=== PATIENT | female | born 1990 | race Caucasian/White ===

== ENCOUNTER 2016-04-10 10:37 | Emergency (ER) | payer OTHER, BC ==
[2016-04-10 11:14] VITALS: BP 111/58
--- OUTSIDE RECORDS SUMMARY | 2016-04-10 11:32 | XMS REPORT | CCD ---
:1990 Author Name TRAE CROSS Gertrude Address [address] [facility] Unavailable [place], [place] [id number] Care Team Providers Name Role Phone RONA WEISS Attending Physician Unavailable Vital Signs Unknown. Allergies Unknown. Procedures Unknown. History of Immunizations Unknown. Problems Unknown. Results Unknown. Medications Unknown. Medications Administered Unknown. Encounters Encounter Diagnosis Diagnosis Code Start Date EXAMINATION OR TEST POS V7242 02/27/2013 Social History Smoking Status Code Start Date End Date Never smoker [id number] Patient Decision Aids Unknown. Instructions You were admitted to [facility] on 02/27/2013 with a principle diagnosis of EXAMINATION OR TEST POS. Should you have any questions prior to discharge, please contact a member of your healthcare team. If you have left the hospital and have any questions, please contact your primary care physician. Chief Complaint and Reason For Visit Unknown. Function Status Unknown. Plan of Care Unknown. Referral/Transition of Care Unknown.
--- OUTSIDE RECORDS SUMMARY | 2016-04-10 11:32 | XMS REPORT | CCD ---
:1990 Author Name BRIANNA SOW Address [address] [facility] Unavailable [place], [place] [id number] Care Team Providers Name Role Phone RONA WEISS Attending Physician Unavailable Vital Signs Unknown. Allergies Unknown. Procedures Unknown. History of Immunizations Unknown. Problems Unknown. Results CBC Test Name Code Test Result Test Units Test Date/Time WBC 6690-2 10.1000 K/uL 03/29/2013 10:55 RBC 789-8 4.2100 M/uL 03/29/2013 10:55 HEMOGLOBIN 718-7 12.9000 g/dL 03/29/2013 10:55 HEMATOCRIT 36.6000 % 03/29/2013 10:55 MCV 86.9000 fL 03/29/2013 10:55 MCH 30.6000 PG 03/29/2013 10:55 MCHC 35.2000 G/DL 03/29/2013 10:55 RDW-SD 40.5000 FL 03/29/2013 10:55 RDW-CV 13.5000 % 03/29/2013 10:55 PLATELETS 218.0000 K/UL 03/29/2013 10:55 MPV 10.4000 FL 03/29/2013 10:55 %GRAN 71.6000 % 03/29/2013 10:55 %LYMPH 19.2000 % 03/29/2013 10:55 %MONO 7.3000 % 03/29/2013 10:55 %EOS 1.7000 % 03/29/2013 10:55 %BASO 0.2000 % 03/29/2013 10:55 #GRAN 7.2300 K/UL 03/29/2013 10:55 #LYMPH 1.9400 K/UL 03/29/2013 10:55 #MONO 0.7400 K/UL 03/29/2013 10:55 #EOS 0.1700 K/UL 03/29/2013 10:55 #BASO 0.0200 K/UL 03/29/2013 10:55 SLIDE REVIEWED? NOT INDICATED N/A 03/29/2013 10:55 MANUAL DIFF NOT INDICATED N/A 03/29/2013 10:55 GLUCOSE TAMI 1 HR SCREEN Test Name Code Test Result Test Units Test Date/Time GLUCOSE TAMI RANDOM 131.0000 MG/DL 03/29/2013 10:55 Medications Unknown. Medications Administered Unknown. Encounters Encounter Diagnosis Diagnosis Code Start Date SCREENING NOS V289 03/29/2013 Social History Smoking Status Code Start Date End Date Never smoker [id number] Patient Decision Aids Unknown. Instructions You were admitted to [facility] on 03/29/2013 with a principle diagnosis of SCREENING NOS. You had the following tests done:[id number]%GRAN%LYMPH% MONO%EOS%BASO#GRAN#LYMPH# MONO#EOS#BASOSLIDE REVIEWED?MANUAL DIFFGLUCOSE TAMI RANDOM You were discharged from [facility] on 03/29/2013. Should you have any questions prior to discharge, please contact a member of your healthcare team. If you have left the hospital and have any questions, please contact your primary care physician. Chief Complaint and Reason For Visit Unknown. Function Status Unknown. Plan of Care Unknown. Referral/Transition of Care Unknown.
--- OUTSIDE RECORDS SUMMARY | 2016-04-10 11:32 | XMS REPORT | CCD ---
:1990 Author Name BRIANNA SOW Address [address] Unavailable [place], [place] [id number] Care Team Providers Name Role Phone RONA WEISS Attending Physician Unavailable Vital Signs Unknown. Allergies Unknown. Procedures Unknown. History of Immunizations Unknown. Problems Unknown. Results Unknown. Medications Unknown. Medications Administered Unknown. Encounters Encounter Diagnosis Diagnosis Code Start Date SCREENING NOS V289 05/31/2013 Social History Smoking Status Code Start Date End Date Never smoker [id number] Patient Decision Aids Unknown. Instructions You were admitted to [facility] on 05/31/2013 with a principle diagnosis of SCREENING NOS. You were discharged from [facility] on 05/31/2013. Should you have any questions prior to discharge, please contact a member of your healthcare team. If you have left the hospital and have any questions, please contact your primary care physician. Chief Complaint and Reason For Visit Unknown. Function Status Unknown. Plan of Care Diagnostic Test Pending Plan of Care Pending Diagnostic Test CULTURE GROUP B, [LOINC: 582-7], 05/31/2013 Referral/Transition of Care Unknown.
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
--- OUTSIDE RECORDS SUMMARY | 2016-04-10 11:32 | XMS REPORT | CCD ---
:1990 Author Name BRIANNA SOW Address [address] Unavailable [place], [place] [id number] Care Team Providers Name Role Phone ANDREW DAMICO Attending Physician Unavailable Vital Signs Unknown or Not Available. Allergies Unknown or Not Available. Procedures Unknown or Not Available. History of Immunizations Unknown or Not Available. Problems Unknown or Not Available. Results Unknown or Not Available. Medications Unknown or Not Available. Medications Administered Unknown or Not Available. Encounters Encounter Diagnosis Diagnosis Code Start Date LUMBOSACRAL SPONDYLOSIS 7213 09/06/2013 Social History Smoking Status Code Start Date End Date Never smoker [id number] Patient Decision Aids Unknown or Not Available. Discharge Instructions You were admitted to [facility] on 09/06/2013 with a principal diagnosis of LUMBOSACRAL SPONDYLOSIS. You had the following procedures done:LUMBOSAC SPINE X-RAY NEC You were discharged from [facility] on 09/06/2013. Should you have any questions prior to discharge, please contact a member of your healthcare team. If you have left the hospital and have any questions, please contact your primary care physician. Chief Complaint and Reason For Visit Unknown or Not Available. Function Status Unknown or Not Available. Plan of Care Unknown or Not Available. Referral/Transition of Care Unknown or Not Available.
--- NOTE | 2016-04-10 11:41 | ERNOTE ---
Date of Service: 04/10/16 Time Seen by Provider: 04/10/16 11:24 Stated Complaint: NOT FEELING VERY WELL Presenting Symptoms:: cough, runny nose Source: patient, RN notes reviewed Exam Limitations: no limitations Immunizations: IMMUNIZATION HX Immunizations Up to Date Yes History of Influenza Vaccine Yes Hx Pneumococcal Vaccination No Allergies/Adverse Reactions: Allergies codeine Allergy (Verified 04/10/16 11:15) diphenhydramine Allergy (Verified 04/10/16 11:15) Sulfa (Sulfonamide Antibiotics) Allergy (Verified 04/10/16 11:15) Home Medications: HOME MEDICATIONS Loratadine [Claritin] 10 mg PO DAILY 04/10/16 [Last Taken Unknown] Pseudoephedrine HCl [Sudafed] 30 mg PO DAILY 04/10/16 [Last Taken Unknown] - History of Present Ilness Narrative: Michelle is a 25 year old female who presents to the ED for upper respiratory symptoms that began yesterday. She also had several episodes of vomiting last evening, but is tolerating oral intake today without incident. Her son is being seen with similar symptoms as well. She has taken ibuprofen this morning. She is routinely on Claritin and Sudaphed for the past several months. Date (Duration): 04/09/16 Frequency/Possible Cause: Reports: illness exposure Associated Symptoms: Reports: cough, nasal congestion, nasal drainage, earache, headache. Denies: chest pain/soreness, shortness of breath, wheezing, facial pain, dizziness, lightheadedness, sore throat, muscle aches, fever/chills Prior Treatment: Denies: recently seen Review of Systems - Review of Systems Constitutional: Present: See HPI EYE: Present: no symptoms reported ENT: Present: See HPI Respiratory: Present: See HPI Cardiology: Present: See HPI Gastrointestinal/Abdominal: Absent: diarrhea, abdominal pain Genitourinary: Present: no symptoms reported Musculoskeletal: Absent: muscle pain, joint pain Skin: Absent: rash, lesions Neurological: Present: headache. Absent: dizziness/light-headedness Endocrine: Present: no symptoms reported Hematologic/Lymphatic: Present: no symptoms reported Psych: Present: no symptoms reported - Patient's Past Medical History Patient History - Medical: No pertinent hx Patient History - Cardiac/Respiratory: No pertinent hx Patient History - Cancer: No Hx of Cancer Patient History - Surgical Procedures: , Other Patient History - Other: None LMP (females 10-50): last week - Social History Living Situations: home Abuse History: No History of abuse Psych History: No pertinent hx Smoking Status: Former smoker Alcohol Use: occasionally Drug Use: none - Immunizations Immunizations Up to Date: Yes Hx Pneumococcal Vaccination: No History of Influenza Vaccine: Yes Physical Exam - Physical Exam General Appearance: Present: wd/wn, alert, no apparent distress Eye Exam: Normal inspection: bilateral, PERRL: bilateral Ears, Nose, Throat: Present: hearing grossly normal, nasal congestion, sinus pain/drainage - mild maxillary sinus tenderness with palpation, pharyngeal erythema - mild. Absent: abnormal TM (R), abnormal TM (L), pharyngeal swelling Neck: Present: normal inspection, nontender, supple Respiratory: Present: no respiratory distress, normal breath sounds, no accessory muscle use, lungs clear Cardiovascular/Chest: Present: regular rate, rhythm, no murmur Neurological Exam: Present: alert, oriented, normal mood/affect, no motor/ sensory deficits Skin Exam: Present: normal color, warm/dry Lymphatic Exam: Present: no adenopathy ED Progress - Vital Signs Patient's Vital Signs:: I have reviewed the patient's vital signs. Vital Signs: Vital Signs 04/10/16 11:00 Temperature 36.2 C L Pulse Rate 82 Respiratory 16 Rate Blood Pressure 111/58 O2 Sat by Pulse 99 Oximetry - Progress/Reassessment Chief Complaint: Upper Respiratory Symptoms Progress:: Unchanged Departure - Departure Clinical Impression: Upper respiratory infection, viral Disposition: Home self-care Condition: Good Instructions: Upper Respiratory Infection, Adult, [id number] Additional Instructions: Stop sudaphed and claritin for now Start Flonase Nasal saline spray as needed for congestion Follow up if symptoms worsen or persist longer than 7 to 10 days
== END 2016-04-10 11:51 | disposition home or self-care (01) ==
LOC: ER 10:37
DX: Z87.891 Personal history of nicotine dependence (principal); J06.9 Acute upper respiratory infection, unspecified; B97.89 Other viral agents as the cause of diseases classified elsewhere

== ENCOUNTER 2016-07-22 11:44 | Emergency (ER) | payer BC, OTHER ==
--- NOTE | 2016-07-22 11:59 | ERNOTE ---
Date of Service: 07/22/16 Time Seen by Provider: 07/22/16 11:56 Stated Complaint: 2 DAYS POST OP, FEVER, COUGHING, SOB Presenting Symptoms:: cough, fever Source: patient, RN notes reviewed Exam Limitations: no limitations Immunizations: IMMUNIZATION HX Immunizations Up to Date Yes History of Influenza Vaccine No Hx Pneumococcal Vaccination No Allergies/Adverse Reactions: Allergies codeine Allergy (Verified 07/22/16 11:55) diphenhydramine Allergy (Verified 07/22/16 11:55) Sulfa (Sulfonamide Antibiotics) Allergy (Verified 07/22/16 11:55) Home Medications: HOME MEDICATIONS Docusate Sodium 100 mg PO BID 07/22/16 [Last Taken Unknown] Omeprazole 20 mg PO DAILY 07/22/16 [Last Taken Unknown] Ondansetron HCl [Zofran] 4 mg PO Q6H 07/22/16 [Last Taken Unknown] oxyCODONE HCL [Oxycodone] 5 mg PO Q6H PRN 07/22/16 [Last Taken Unknown] - History of Present Ilness Narrative: 25 y/o female ambulatory to the ED for a fever that was noticed early this morning. She underwent a laparascopic cholecystectomy and hernia repair at [facility] in [place] 2 days ago. She reports having a cough prior to her surgery. She had taken a ZPack for the cough without improvement. The cough is now productive, and her chest feels heavy. She denies significant pain surrounding her surgical wounds, but reports bloating and referred pain into her right shoulder. She reports having a temp of 101 this morning. She had Tylenol approximately 3 hours ago. Her son had been ill with URI symptoms before she was diagnosed with bronchitis. Date (Duration): 07/22/16 Frequency/Possible Cause: Reports: illness exposure Associated Symptoms: Reports: cough, shortness of breath, nasal congestion, nasal drainage, fever/chills. Denies: chest pain/soreness, wheezing, facial pain, earache, headache, sore throat Prior Treatment: Reports: recently seen, treated by physician, recently hospitalized Review of Systems - Review of Systems Constitutional: Present: recent illness, fever, chills, fatigue, malaise, decreased activity level EYE: Present: no symptoms reported ENT: Present: nose congestion, nasal drainage. Absent: ear pain, sore throat Respiratory: Present: shortness of breath, cough. Absent: wheezing, stridor Cardiology: Absent: chest pain, palpitations, syncope Gastrointestinal/Abdominal: Present: nausea, eating less, other - passing flatus. Absent: vomiting, diarrhea, constipation, drinking less Genitourinary: Absent: dysuria, other - possible Musculoskeletal: Present: no symptoms reported Skin: Absent: rash, lesions Neurological: Absent: headache, dizziness/light-headedness Endocrine: Present: no symptoms reported Hematologic/Lymphatic: Absent: easy bruising, easy bleeding Psych: Present: anxiety - Patient's Past Medical History Patient History - Medical: No pertinent hx Patient History - Cardiac/Respiratory: No pertinent hx Patient History - Cancer: No Hx of Cancer Patient History - Surgical Procedures: Cholecystectomy, , Other, Hernia Repair Patient History - Other: None LMP (Calendar): 07/09/16 - Social History Living Situations: home Abuse History: No History of abuse Psych History: No pertinent hx Smoking Status: Never smoker Alcohol Use: occasionally Drug Use: none - Immunizations Immunizations Up to Date: Yes Hx Pneumococcal Vaccination: No History of Influenza Vaccine: No Physical Exam - Physical Exam General Appearance: Present: wd/wn, alert, mild distress Eye Exam: Normal inspection: bilateral Ears, Nose, Throat: Present: nasal congestion, normal pharynx. Absent: abnormal TM (R), abnormal TM (L), sinus pain/drainage, pharyngeal erythema Neck: Present: normal inspection, nontender, supple Respiratory: Present: no respiratory distress, normal breath sounds, no accessory muscle use, chest nontender, lungs clear Cardiovascular/Chest: Present: regular rate, rhythm, no murmur, normal peripheral pulses Gastrointestinal/Abdominal: Present: normal bowel sounds, nondistended, soft, tenderness - upper quads. Absent: guarding, mass Extremity Exam: Present: normal inspection, normal range of motion, no edema Neurological Exam: Present: alert, oriented, normal mood/affect, no motor/ sensory deficits Skin Exam: Present: normal color, warm/dry ED Progress - Results and Orders Patient's Lab Results:: I have reviewed the patient's lab results. - Vital Signs Patient's Vital Signs:: I have reviewed the patient's vital signs. Vital Signs: Vital Signs 07/22/16 11:50 Temperature 36.8 C Pulse Rate 69 Respiratory 16 Rate Blood Pressure 114/74 O2 Sat by Pulse 100 Oximetry - X-Ray X-Ray #1 X-Ray: chest Interpretation: Reviewed by me X-ray Comments: Chest PA Lateral * Normal lung volumes. No consolidation or mass. No pneumothorax or pleural fluid collections. Cardiac and mediastinal silhouettes are normal. Trachea is in normal position. Bones are normal. Mild to moderate amount of subdiaphragmatic free air noted. IMPRESSION: 1. No focal acute cardiopulmonary finding. 2. Mild to moderate amount of subdiaphragmatic free air, presumably postoperative in nature, but correlate clinically. Ordering provider Grazyna Ann was informed regarding the above results via telephone on 07/22/2016 12:47 PM. Electronically signed by Sirisha Sanford M.D.. - Progress/Reassessment Chief Complaint: Upper Respiratory Symptoms Progress:: Unchanged Progress Note-Subjective: 07/22/16 13:45 CBC, CMP and UA are without findings, there is free air present on CXR but is likely d/t laprascopic procedure 2 days ago as patient does not have abdominal distention and only mild to moderate pain in the upper abdomen. Her incisions are without redness or drainage. The patient has not been coughing while in the department. Dr. Warren at [facility] in [place] contacted regarding findings. Requested that records from today be faxed to their office. Patient does have blood cultures pending. She is to continue her plan of care as before. Departure - Departure Clinical Impression: Postoperative fever Disposition: Home Follow Up Needed Condition: Stable Instructions: Fever, Adult Additional Instructions: Continue your current medications Follow up with your surgeon as scheduled, or before if symptoms worsen Rest, drink plenty of fluids
--- OUTSIDE RECORDS SUMMARY | 2016-07-22 12:06 | XMS REPORT | Continuity of Care Document ---
:1990 Author Organization [facility] ([facility]) Address [address] [place] [address] Phone [phone] Care Team Providers Name Role Phone Provider, No-Primary Care Primary Care Provider Unavailable Source Comments This disclosure is being made pursuant to the Care Everywhere program, applicable federal and state laws, and may not contain all informaitonavailable regarding this patient.[facility] ([facility]) Active Allergies and Adverse Reactions Allergen Noted [...] Slim Active OTHER Pro biotic 5, Gavino X, Active X factor, Biocleanse Active Problems Problem Noted Date Anxiety 02/27/2015 [...] swelling, mass or lump, unspecified site 06/22/200610/27 Most Recent Encounters Date Type Specialty Providers Description 06/11/2016 Office Visit [facility] Belinda Friedman ARNP Dx: Upper respiratory [facility], [facility] infection, viral (Primary Dx) Social History Tobacco Use Types Packs/Day Years Used Date Former Smoker Quit: 01/30/2011 Smokeless Tobacco: Never Used Alcohol Use Drinks/Week oz/Week Comments No not since Last Filed Vital Signs Vital Sign Reading Time Taken Blood Pressure 92/60 06/11/2016 10:50 AM CDT Pulse 70 06/11/2016 10:50 AM CDT Temperature 36.7 C (98.1 F) 06/11/2016 10:50 AM CDT Respiratory Rate 16 06/11/2016 10:50 AM CDT Height 1.549 m (5' 1") 12/17/2015 11:22 AM CDT Weight 64.864 kg (143 lb) 06/11/2016 10:50 AM CDT Body Mass Index 27.03 06/11/2016 10:50 AM CDT Oxygen Saturation 97% 06/11/2016 10:50 AM CDT Plan of Care Health Maintenance Due Date Last Done Comments Hepatitis B Vaccine (1 of 3 - Primary Series) 1990 Tdap Vaccine 08/22/1999 MMR Vaccine 2006 Td Vaccine 2006 Pneumococcal Vaccine (1 of 1 - PPSV23) 08/22/2007 Lipid Disorder Screening 08/05/2011 08/04/2006 Cervical Cancer Screening 02/12/2014 02/12/2011 Influenza Vaccine: Seasonal (Season Ended) 2016 Results from Last 3 Months Not on file
[2016-07-22] MEDS ORDERED: oxyCODONE HCL 5 MG TABLET PO ONE (12:13)
[2016-07-22] MEDS ORDERED: oxyCODONE HCL 5 MG TABLET ONE (12:17)
[2016-07-22 12:26] LABS: Hematocrit 35.9 % (37.0-47.0); Hemoglobin 12.5 gm/dL (12.5-16.0); Mean Cell Volume 86.7 fl (78-100); Mean Corpuscular Hemoglobin 30.2 pg (27-31); Mean Corpuscular Hgb Conc 34.8 g/dl (32-36); Neutrophil % 55.3 % (42-75.0); Platelet Count 210 K/mm3 (150-450); Red Blood Count 4.14 M/mm3 (4.2-5.4); Red Cell Distribution Width 12.8 % (11.5-14.0)
[2016-07-22 12:37] LABS: Albumin * 3.6 gm/dl (3.4-5.0); Anion Gap 13.6 mmol/L (6.8-13.8); BUN/Creatinine Ratio 16.4 (9.0-21.6); Bilirubin, Total 0.3 mg/dL (0.0-1.1); Ca. Corrected For Albumin 8.6 mg/dL (8.4-10.2); Calcium * 8.6 mg/dL (7.9-10.9); Carbon Dioxide 27.1 mmol/L (24-32.6); Potassium 3.7 mmol/L (3.4-4.6); Total Protein 6.6 gm/dL (6.2-8.2)
[2016-07-22 13:01] LABS: Urine Appearance Clear; Urine Bacteria None Seen; Urine Bilirubin Negative (NEGATIVE); Urine Blood Negative /ul (NEGATIVE); Urine Color Yellow; Urine Ketone Negative (NEGATIVE); Urine Nitrite Negative (NEGATIVE); Urine Protein Negative (NEGATIVE); Urine RBC None Seen /hpf (0-5); Urine Specific Gravity <=1.005 SP.GR. (1.005-1.010); Urine Urobilinogen Normal (NORMAL); Urine WBC None Seen /hpf (0-5)
[2016-07-22 14:02] VITALS: BP 108/64
== END 2016-07-22 14:02 | disposition home or self-care (01) ==
LOC: ER 11:44
DX: R50.82 Postprocedural fever (principal); Z90.49 Acquired absence of other specified parts of digestive tract

== ENCOUNTER 2016-08-18 20:56 | Emergency (ER) | payer BC, OTHER ==
[2016-08-18] MEDS ORDERED: MAG HYDROX/ALUMINUM HYD/SIMETH 30 ML UDC PO ONE (21:21)
[2016-08-18 21:32] LABS: Hematocrit 38.3 % (37.0-47.0); Hemoglobin 13.4 gm/dL (12.5-16.0); Mean Cell Volume 84.7 fl (78-100); Mean Corpuscular Hemoglobin 29.6 pg (27-31); Mean Platelet Volume 10.5 fl (6.0-9.5); Neutrophil # 5.5 K/mm3 (1.3-6.0); Platelet Count 200 K/mm3 (150-450); Red Blood Count 4.52 M/mm3 (4.2-5.4); Red Cell Distribution Width 12.8 % (11.5-14.0); White Blood Count 9.6 K/mm3 (4.0-10.5)
--- NOTE | 2016-08-18 21:32 | ERNOTE ---
Chest Pain/Cardiac HPI Chief Complaint: Chest Pain Time Seen by Provider: 08/18/16 21:03 Source: patient Exam Limitations: no limitations Immunizations: IMMUNIZATION HX Immunizations Up to Date Yes History of Influenza Vaccine Yes Hx Pneumococcal Vaccination No Allergies/Adverse Reactions: Allergies codeine Allergy (Verified 08/18/16 21:12) diphenhydramine Allergy (Verified 08/18/16 21:12) Sulfa (Sulfonamide Antibiotics) Allergy (Verified 08/18/16 21:12) Home Medications: HOME MEDICATIONS Omeprazole 20 mg PO DAILY 07/22/16 [Last Taken Unknown] FLUoxetine HCL [Prozac] 20 mg PO DAILY 08/18/16 [Last Taken Unknown] LORazepam [Ativan] 0.5 mg PO TID PRN 08/18/16 [Last Taken Unknown] Narrative: Patient was driving home from her baby's fathers house when she started to have midsternal chest pain with radiation to her back. She got to her house and started to feel faint when she got into the house. She panicked and instead of sitting down started to run outside and fainted, was out briefly, fainted one more time when getting up. She still has chest pain, but it has gotten better, seems to be coming in waves. She has a history of anxiety, has almost daily symptoms, but states that this feels different. This morning she had a positive test. Her last period was normal and about three weeks ago, but for about three days she has felt slightly nauseated and had breast fullness. Because of the possible she has not taken any of her ativan Date (Duration): 08/18/16 Time (Timing): 20:20 Timing: intermittent Severity/Quality: moderate, dull, sharp Location: central Chest Pain Radiation: back Activities at Onset: none Nitro Today/Relief: no nitro taken today Aspirin Treatment Today: no aspirin today Prior Chest Pain/Cardiac Workup: Reports: prior chest pain Prior Treatment: Denies: recently seen, currently on antibiotics Review of Systems - Review of Systems Constitutional: Present: recent illness - gallbladder removed one month ago ENT: Absent: nose congestion, sore throat Respiratory: Absent: shortness of breath, cough Cardiology: Present: See HPI, chest pain Gastrointestinal/Abdominal: Present: nausea. Absent: vomiting, diarrhea, abdominal pain Genitourinary: Present: no symptoms reported, See HPI Neurological: Present: tingling - both hands. Absent: headache, weakness Psych: Present: anxiety - Patient's Past Medical History Patient History - Medical: Anxiety, GERD Patient History - Cardiac/Respiratory: No pertinent hx Patient History - Cancer: No Hx of Cancer Patient History - Surgical Procedures: Cholecystectomy, , Other, Hernia Repair Patient History - Other: None LMP (Calendar): 07/09/16 - Social History Living Situations: home Abuse History: No History of abuse Psych History: No pertinent hx Smoking Status: Former smoker Alcohol Use: occasionally Drug Use: none - Immunizations Immunizations Up to Date: Yes Hx Pneumococcal Vaccination: No History of Influenza Vaccine: Yes Physical Exam - Physical Exam General Appearance: Present: wd/wn, alert, no apparent distress, anxious Respiratory: Present: no respiratory distress, normal breath sounds, no accessory muscle use, chest nontender, lungs clear Cardiovascular/Chest: Present: regular rate, rhythm, no murmur Gastrointestinal/Abdominal: Present: normal bowel sounds, nondistended, soft, no organomegaly, tenderness - epigastric Back Exam: Present: no CVA tenderness Extremity Exam: Present: no edema Neurological Exam: Present: alert, oriented, normal mood/affect Skin Exam: Present: normal color, warm/dry ED Progress - Results and Orders Patient's Lab Results:: I have reviewed the patient's lab results. - Vital Signs Patient's Vital Signs:: I have reviewed the patient's vital signs. Vital Signs: Vital Signs 08/18/16 20:59 Temperature 36.4 C L Pulse Rate 75 Respiratory 18 Rate Blood Pressure 138/60 O2 Sat by Pulse 99 Oximetry - EKG EKG: NSR, no ST T wave changes EKG read: Interp. by me - Progress/Reassessment Chief Complaint: Chest Pain Progress Note-Subjective: 08/18/16 21:48 pain better after maalox, but not resolved, still nauseated and anxious 08/18/16 22:24 patient feeling better, no chest pain, tingling has resolved, no nausea, tolerating po, discussed test results including negative test Departure - Departure Clinical Impression: Anxiety Disposition: Home self-care Condition: Good Instructions: Hyperventilation Additional Instructions: call your doctor for follow up
[2016-08-18 21:48] LABS: ALT 53 U/L (19-67); AST 68 U/L (0-48); Alkaline Phosphatase * 64 U/L (50-170); Anion Gap 16.8 mmol/L (6.8-13.8); BUN/Creatinine Ratio 22.7 (9.0-21.6); Bilirubin, Total 0.4 mg/dL (0.0-1.1); Blood Urea Nitrogen 17 mg/dL (3-23); Calcium * 9.3 mg/dL (7.9-10.9); Carbon Dioxide 23.2 mmol/L (24-32.6); Chloride 104 mmol/L (97-106); Glucose * 136 mg/dL (70-110); Sodium 141 mmol/L (132-142); Total Protein 7.1 gm/dL (6.2-8.2); Troponin I Less than 0.017 ng/ml (0.00-0.10)
[2016-08-18] MEDS ORDERED: PROMETHAZINE HCL 25 MG in DEXTROSE 5 % IN WATER 50 ML IV ONE ×2 (21:48)
[2016-08-18] MEDS ORDERED: NORMAL SALINE 1,000 ML IV ONE (21:49)
[2016-08-18] MEDS ORDERED: POTASSIUM CHLORIDE 20 MEQ TABLET.SA PO ONE (22:24)
[2016-08-18] MEDS ORDERED: POTASSIUM CHLORIDE 20 MEQ TABLET.SA ONE (22:28)
[2016-08-18 23:02] VITALS: BP 104/66
== END 2016-08-18 22:59 | disposition home or self-care (01) ==
LOC: ER 20:56
DX: F41.9 Anxiety disorder, unspecified (principal)

== ENCOUNTER 2016-08-21 06:57 | Emergency (ER) | payer BC, OTHER ==
[2016-08-21] MEDS ORDERED: NORMAL SALINE 1,000 ML IV ONE (07:26)
[2016-08-21] MEDS: NORMAL SALINE 1,000 ML IV ONE ×2 (07:26→08:31)
[2016-08-21] MEDS ORDERED: PROMETHAZINE HCL 25 MG/ML AMPUL IM ONE (07:37)
--- NOTE | 2016-08-21 07:37 | ERNOTE ---
<Juan Diego Blankenship - Last Filed: 08/28/16 08:25> Abdominal HPI - Narrative Date of Service: 08/21/16 - General Chief Complaint: Abdominal Pain Source: patient Exam Limitations: no limitations - Immun/Allergies/Home Medications Immunizatons: IMMUNIZATION HX Immunizations Up to Date Yes History of Influenza Vaccine Yes Hx Pneumococcal Vaccination No Allergies/Adverse Reactions: Allergies codeine Allergy (Verified 08/20/16 12:49) diatrizoate meglumine [From Gastrografin] Allergy (Verified 08/20/16 12:50) diatrizoate sodium [From Gastrografin] Allergy (Verified 08/20/16 12:50) diphenhydramine Allergy (Verified 08/20/16 12:49) Sulfa (Sulfonamide Antibiotics) Allergy (Verified 08/20/16 12:49) Home Medications: HOME MEDICATIONS Omeprazole 20 mg PO DAILY 07/22/16 [Last Taken Unknown] FLUoxetine HCL [Prozac] 20 mg PO DAILY 08/18/16 [Last Taken Unknown] LORazepam [Ativan] 0.5 mg PO TID PRN 08/18/16 [Last Taken Unknown] Ondansetron [Zofran Odt] 8 mg PO Q8H PRN #12 tab 08/20/16 [Last Taken Unknown] oxyCODONE HCL [Oxycodone HCl] 1 - 2 tab PO Q6H PRN #20 capsule 08/20/16 [Last Taken Unknown] - History of Present Illness Narrative: 26 year old that presents to the ED with N/V that has been occurring since Wednesday, which was also associated with chest pain. The pain is in the lower chest and radiates to the circumferentially to the back. On Wednesday also experienced a syncopal episode. Subsequently seen in the ED on 08/18 and 08/20. CT angio was done- no PE or thoracic aneurysm ; and US of the abdomen was unremarkable. Negative x 2. On the previous visit LFTs were elevated. On this visit the LFTs are showing improvement. Hepatitis screen is pending. Timing: getting worse Quality: moderate Activities at Onset: none Modifying Factors - (Improves): Present: other Modifying Factors - (Worsens): Present: other - none Associated Symptoms: Present: other - chest pain Review of Systems - Review of Systems Constitutional: Present: no symptoms reported EYE: Present: no symptoms reported ENT: Present: no symptoms reported Respiratory: Present: no symptoms reported Cardiology: Present: See HPI Gastrointestinal/Abdominal: Present: See HPI Genitourinary: Present: no symptoms reported Musculoskeletal: Present: no symptoms reported Skin: Present: no symptoms reported Neurological: Present: no symptoms reported Endocrine: Present: no symptoms reported Hematologic/Lymphatic: Present: no symptoms reported Psych: Present: no symptoms reported - Patient's Past Medical History Patient History - Medical: Anxiety, GERD Patient History - Cardiac/Respiratory: No pertinent hx Patient History - Cancer: No Hx of Cancer Patient History - Surgical Procedures: Cholecystectomy, , Other, Hernia Repair Patient History - Other: None LMP (Calendar): 07/09/16 - Family History Mother Family History - Medical: No pertinent hx Father Family History - Medical: No pertinent hx Family History - Cardiac/Respiratory: Hypertension - Social History Living Situations: home Abuse History: No History of abuse Psych History: No pertinent hx Smoking Status: Never smoker Have you smoked in the past 12 months: No Do you dip or chew tobacco: No Alcohol Use: occasionally Drug Use: none - Immunizations Immunizations Up to Date: Yes Hx Pneumococcal Vaccination: No History of Influenza Vaccine: Yes Physical Exam - Physical Exam General Appearance: Present: mild distress Eye Exam: Normal inspection: bilateral Ears, Nose, Throat: Present: normal except -, other - slightly juandiced sclera Neck: Present: normal inspection Respiratory: Present: no respiratory distress Cardiovascular/Chest: Present: regular rate, rhythm Gastrointestinal/Abdominal: Present: nondistended, soft Back Exam: Present: normal inspection Extremity Exam: Present: normal inspection Neurological Exam: Present: alert, oriented Skin Exam: Present: normal color, warm/dry ED Progress - Results and Orders Patient's Lab Results:: I have reviewed the patient's lab results. - Vital Signs Patient's Vital Signs:: I have reviewed the patient's vital signs. Vital Signs: Vital Signs 08/21/16 08/21/16 07:03 07:29 Temperature 36.4 C L 36.5 C Pulse Rate 73 76 Respiratory 16 14 Rate Blood Pressure 116/74 112/62 O2 Sat by Pulse 97 98 Oximetry - Progress/Reassessment Chief Complaint: Abdominal Pain Progress:: Improved Progress Note-Subjective: 08/21/16 08:58 Nausea has resolved. Feeling better, since getting the IV fluids. - Transfer of Care Physician Sign Out: Juan Diego Blankenship Receiving Physician: Bon Martinez - EKG pending Pending Results: Labs Departure - Departure Clinical Impression: Elevated transaminase level Disposition: Home Follow Up Needed Instructions: Hepatitis A, [id number], Diet and Hepatitis Additional Instructions: See your primary care doctor early next week. Take the pain meds and zofran prescribed at previous visit. <Bon Martinez - Last Filed: 08/28/16 20:37> Abdominal HPI - Immun/Allergies/Home Medications Immunizatons: IMMUNIZATION HX Immunizations Up to Date Yes History of Influenza Vaccine Yes Hx Pneumococcal Vaccination No Physical Exam - Physical Exam General Appearance: Present: alert, no apparent distress, anxious - due to inconclusiveness of her tests so far Gastrointestinal/Abdominal: Present: normal bowel sounds, tenderness - RUQ and into epigastrium- palpated to be liver edge in each area. . Absent: guarding, rebound Neurological Exam: Present: alert, oriented Skin Exam: Present: normal color, warm/dry ED Progress - Results and Orders Patient's Lab Results:: I have reviewed the patient's lab results. - Vital Signs Vital Signs: Vital Signs 08/21/16 08/21/16 08/21/16 07:03 07:29 07:47 Temperature 36.4 C L 36.5 C Pulse Rate 73 76 60 Respiratory 16 14 Rate Blood Pressure 116/74 112/62 O2 Sat by Pulse 97 98 Oximetry 08/21/16 08:33 Temperature 36.1 C L Pulse Rate 57 L Respiratory 12 Rate Blood Pressure 99/67 O2 Sat by Pulse 100 Oximetry - Progress/Reassessment Progress:: Improved Progress Note-Subjective: 08/28/16 20:34 Discussed all lab results and the chances of hepatitis both infective and other types of hepatitis. Discussed slight improvement in transaminase levels today. Pt much more calm and feels better about watching the transaminase levels and awaiting hepatitis results
[2016-08-21 07:38] LABS: Urine Bilirubin 6 mg/dl (NEGATIVE); Urine Blood Negative /ul (NEGATIVE); Urine Ketone Negative (NEGATIVE); Urine Nitrite Negative (NEGATIVE); Urine Protein Negative (NEGATIVE); Urine Specific Gravity 1.015 SP.GR. (1.005-1.010); Urine Urobilinogen Normal (NORMAL)
[2016-08-21] MEDS ORDERED: PROMETHAZINE HCL 25 MG/ML AMPUL ONE (07:42)
[2016-08-21 07:47] LABS: Hematocrit 38.6 % (37.0-47.0); Hemoglobin 13.2 gm/dL (12.5-16.0); Mean Cell Volume 88.1 fl (78-100); Mean Corpuscular Hemoglobin 30.1 pg (27-31); Mean Corpuscular Hgb Conc 34.2 g/dl (32-36); Mean Platelet Volume 10.5 fl (6.0-9.5); Neutrophil # 4.2 K/mm3 (1.3-6.0); Neutrophil % 71.1 % (42-75.0); Platelet Count 182 K/mm3 (150-450); Red Blood Count 4.38 M/mm3 (4.2-5.4); Red Cell Distribution Width 13.8 % (11.5-14.0); White Blood Count 5.8 K/mm3 (4.0-10.5)
[2016-08-21 08:05] LABS: Albumin * 3.8 gm/dl (3.4-5.0); Anion Gap 11.5 mmol/L (6.8-13.8); BUN/Creatinine Ratio 10.3 (9.0-21.6); Bilirubin, Total 3.5 mg/dL (0.0-1.1); Ca. Corrected For Albumin 8.6 mg/dL (8.4-10.2); Calcium * 8.8 mg/dL (7.9-10.9); Carbon Dioxide 27.6 mmol/L (24-32.6); Potassium 4.1 mmol/L (3.4-4.6); Total Protein 7.1 gm/dL (6.2-8.2)
[2016-08-21 08:10] LABS: Urine Appearance Slightly Cloudy; Urine Bacteria TRACE; Urine Color Dark Yellow; Urine RBC None Seen /hpf (0-5); Urine Renal Epithelial Cell Moderate - 2+ /hpf; Urine WBC None Seen /hpf (0-5)
[2016-08-21] MEDS ORDERED: LIDOCAINE HCL 20 ML UDC PO ONE (08:50)
[2016-08-21] MEDS ORDERED: PANTOPRAZOLE SODIUM 40 MG TABLET.EC PO ONE (08:50)
[2016-08-21] MEDS ORDERED: MAG HYDROX/ALUMINUM HYD/SIMETH 30 ML UDC PO ONE (08:50)
[2016-08-21] MEDS ORDERED: PANTOPRAZOLE SODIUM 40 MG TABLET.EC ONE (08:52)
[2016-08-21 10:16] VITALS: BP 99/75
== END 2016-08-21 10:15 | disposition home or self-care (01) ==
LOC: ER 06:57
DX: R74.0 Nonspecific elevation of levels of transaminase and lactic acid dehydrogenase [LDH] (principal)

== ENCOUNTER 2016-09-14 12:45 | Emergency (ER) | payer BC, OTHER ==
[2016-09-14 13:06] LABS: Hematocrit 40.4 % (37.0-47.0); Hemoglobin 14.2 gm/dL (12.5-16.0); Mean Cell Volume 84.7 fl (78-100); Mean Corpuscular Hemoglobin 29.8 pg (27-31); Mean Corpuscular Hgb Conc 35.1 g/dl (32-36); Mean Platelet Volume 10.2 fl (6.0-9.5); Neutrophil # 5.6 K/mm3 (1.3-6.0); Neutrophil % 64.4 % (42-75.0); Platelet Count 282 K/mm3 (150-450); Red Blood Count 4.77 M/mm3 (4.2-5.4); Red Cell Distribution Width 12.1 % (11.5-14.0); White Blood Count 8.7 K/mm3 (4.0-10.5)
[2016-09-14 13:22] LABS: Albumin * 4.1 gm/dl (3.4-5.0); Anion Gap 11.7 mmol/L (6.8-13.8); BUN/Creatinine Ratio 17.4 (9.0-21.6); Bilirubin, Total 0.5 mg/dL (0.0-1.1); Ca. Corrected For Albumin 8.8 mg/dL (8.4-10.2); Calcium * 9.2 mg/dL (7.9-10.9); Carbon Dioxide 26.9 mmol/L (24-32.6); Potassium 3.6 mmol/L (3.4-4.6); Total Protein 7.5 gm/dL (6.2-8.2)
[2016-09-14 13:37] LABS: Urine Bilirubin Negative (NEGATIVE); Urine Blood Negative /ul (NEGATIVE); Urine Ketone Negative (NEGATIVE); Urine Nitrite Negative (NEGATIVE); Urine Protein Negative (NEGATIVE); Urine Specific Gravity <=1.005 SP.GR. (1.005-1.010); Urine Urobilinogen Normal (NORMAL)
[2016-09-14 13:51] LABS: Urine Appearance Clear; Urine Bacteria TRACE; Urine Color Pale Yellow; Urine RBC TRACE /hpf (0-5); Urine WBC None Seen /hpf (0-5)
[2016-09-14] MEDS: ONDANSETRON 4 MG TAB.RAPDIS PO ONE (13:56)
[2016-09-14] MEDS ORDERED: ONDANSETRON 4 MG TAB.RAPDIS ONE (13:56)
--- NOTE | 2016-09-14 14:01 | ERNOTE ---
Abdominal HPI - General Chief Complaint: Abdominal Pain Time Seen by Provider: 09/14/16 12:59 Source: patient Exam Limitations: no limitations - Immun/Allergies/Home Medications Immunizatons: IMMUNIZATION HX Immunizations Up to Date Yes History of Influenza Vaccine Yes Hx Pneumococcal Vaccination No Allergies/Adverse Reactions: Allergies codeine Allergy (Verified 09/14/16 12:55) diatrizoate meglumine [From Gastrografin] Allergy (Verified 09/14/16 12:55) diatrizoate sodium [From Gastrografin] Allergy (Verified 09/14/16 12:55) diphenhydramine Allergy (Verified 09/14/16 12:55) Sulfa (Sulfonamide Antibiotics) Allergy (Verified 09/14/16 12:55) Home Medications: HOME MEDICATIONS Omeprazole 20 mg PO DAILY 07/22/16 [Last Taken Unknown] FLUoxetine HCL [Prozac] 20 mg PO DAILY 08/18/16 [Last Taken Unknown] LORazepam [Ativan] 0.5 mg PO TID PRN 08/18/16 [Last Taken Unknown] Ondansetron [Zofran Odt] 8 mg PO Q8H PRN #12 tab 08/20/16 [Last Taken Unknown] Dicyclomine HCl [Bentyl] 10 mg PO QID PRN #30 capsule 09/14/16 [Last Taken Unknown] HYDROcodone/ACETAMINOPHEN [Hastings 5-325] 1 each PO Q4H #20 tablet 09/14/16 [Last Taken Unknown] Ondansetron [Zofran Odt] 4 mg PO Q6H PRN #20 tab 09/14/16 [Last Taken Unknown] lamoTRIgine [Lamictal] 25 mg PO HS 09/14/16 [Last Taken Unknown] - History of Present Illness Narrative: Patient comes in complaining of nausea and abdominal pain that radiates to the back. She states this is the exact pain that she had and she had biliary stenosis and had to have a stent placement done in [place]. Patient is very worried that her, bile duct may be starting to become occluded once again. She has tried to call her physician in [place] and he assured her that this is likely not the case however she's noted over the past 24-48 hours that is gotten worse. She describes it at this point is moderate in intensity. Timing: constant, getting worse Quality: moderate Activities at Onset: none Associated Symptoms: Present: nausea Prior Abdominal Problems: Present: similar symptoms - with her biliary stenosis Review of Systems - Review of Systems Constitutional: Present: See HPI EYE: Present: no symptoms reported ENT: Present: no symptoms reported Respiratory: Present: no symptoms reported Cardiology: Present: no symptoms reported Gastrointestinal/Abdominal: Present: See HPI Genitourinary: Present: no symptoms reported Musculoskeletal: Present: no symptoms reported Skin: Present: no symptoms reported Neurological: Present: no symptoms reported Endocrine: Present: no symptoms reported Hematologic/Lymphatic: Present: no symptoms reported Psych: Present: no symptoms reported - Patient's Past Medical History Patient History - Medical: Anxiety, GERD, Other - 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 Patient History - Cardiac/Respiratory: No pertinent hx Patient History - Cancer: No Hx of Cancer Patient History - Surgical Procedures: Cholecystectomy, , Other, Hernia Repair Patient History - Other: None LMP (Calendar): 07/09/16 - Family History Mother Family History - Medical: No pertinent hx Father Family History - Medical: No pertinent hx Family History - Cardiac/Respiratory: Hypertension - Social History Living Situations: alone Abuse History: No History of abuse Psych History: No pertinent hx Smoking Status: Never smoker Have you smoked in the past 12 months: No Do you dip or chew tobacco: No Alcohol Use: occasionally Drug Use: none - Immunizations Immunizations Up to Date: Yes Hx Pneumococcal Vaccination: No History of Influenza Vaccine: Yes Physical Exam - Physical Exam General Appearance: Present: wd/wn, alert, moderate distress Head Exam: Present: normal inspection, no evidence of injury Eye Exam: Normal inspection: bilateral, PERRL: bilateral Ears, Nose, Throat: Present: normal ENT inspection, H, normal pharynx Neck: Present: normal inspection, nontender Respiratory: Present: no respiratory distress, normal breath sounds, no accessory muscle use, chest nontender, lungs clear Cardiovascular/Chest: Present: regular rate, rhythm, no murmur, normal peripheral pulses Gastrointestinal/Abdominal: Present: normal bowel sounds, nondistended, soft, no organomegaly, tenderness Rectal Exam: Present: deferred Back Exam: Present: normal inspection, normal range of motion Extremity Exam: Present: normal inspection, non-tender, no edema, normal range of motion Neurological Exam: Present: alert, oriented, normal mood/affect Skin Exam: Present: normal color, warm/dry Lymphatic Exam: Present: no adenopathy ED Progress - Results and Orders Patient's Lab Results:: I have reviewed the patient's lab results. - Vital Signs Patient's Vital Signs:: I have reviewed the patient's vital signs. 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 I am reluctant to give her narcotics as they cause further, bile duct spasm however she is in some difficulty. Patient will be started on Zofran for nausea we will try a brief trial of Bentyl for any spasm and Hastings for any severe breakthrough pain. She agrees to call her guide dog trainer in [place] for further guidance in this manner. Departure - Departure Clinical Impression: Biliary dyskinesia, Biliary colic Condition: Good Instructions: Biliary Colic Prescriptions: Dicyclomine HCl [Bentyl] 10 mg PO QID PRN #30 capsule PRN Reason: Moderate Pain HYDROcodone/ACETAMINOPHEN [Hastings 5-325] 1 each PO Q4H #20 tablet Ondansetron [Zofran Odt] 4 mg PO Q6H PRN #20 tab PRN Reason: Nausea And Vomiting
[2016-09-14 14:40] VITALS: BP 103/72
== END 2016-09-14 14:38 | disposition home or self-care (01) ==
LOC: ER 12:45
DX: K80.50 Calculus of bile duct without cholangitis or cholecystitis without obstruction (principal); K82.8 Other specified diseases of gallbladder